=== PATIENT | male | born 1955 | race Caucasian/White ===

== ENCOUNTER → 2017-02-06 | Outpatient (CLI) | payer MEDICARE ==
--- NOTE | 2017-02-06 07:26 | US ---
EXAMINATION TYPE: US abdomen complete DATE OF EXAM: 02/06/2017 COMPARISON: NONE CLINICAL HISTORY: R94.1 Abnormal liver function test. Elevated LFT's EXAM MEASUREMENTS: Liver Length: 15.1 cm Gallbladder Wall: 0.2 cm CBD: 0.4 cm Spleen: 11.8 cm Right Kidney: 11.0 x 5.3 x 5.2 cm Left Kidney: 11.4 x 5.6 x 5.3 cm Pancreas: wnl, tail obscured by bowel gas Liver: wnl Gallbladder: wnl Evidence for sonographic Moran's sign: No CBD: wnl Spleen: wnl Right Kidney: wnl Left Kidney: wnl Upper IVC: wnl Abd Aorta: wnl The liver is homogenous. The intrahepatic portion of the IVC and proximal abdominal aorta are within normal limits. There is no evidence of cholelithiasis. Common bile duct is unremarkable. The visu alized portions of the pancreas are homogenous. Portions of the body and tail are obscured. The sple en is unremarkable. Kidneys are symmetric and free of hydronephrosis. No renal lesions are seen. IMPRESSION:
== END | disposition home or self-care (01) ==
LOC: RADUSWWP 06:40
PROVIDERS: ATTEND Internal Medicine
DX: R94.5 Abnormal results of liver function studies (principal)
CPT/HCPCS: 76700